=== PATIENT | male | born 1995 | race Two or more races ===

== ENCOUNTER 2016-11-04 18:08 | Emergency (ER) | payer SELFPAY ==
[2016-11-04] MEDS ORDERED: ONDANSETRON 4 MG/2ML 2 ML VIAL ONE (19:42)
[2016-11-04] MEDS ORDERED: SODIUM CHLORIDE 0.9% 1,000 ML ONE (19:42)
[2016-11-04 19:45] LABS: ABSOLUTE NEUTROPHIL COUNT 5.7 K/mm3 (1.8-7.7); BASO % 0.3 % (0.2-1.0); EOS # 0.3 (0.0-0.5); EOS % 3.2 % (0.9-2.9); HEMOGLOBIN 17.1 gm/l (14.0-18.0); IMM NEUT # 0.1 K/mm3 (0-0.2); IMM NEUT% 0.7 % (0-1); LYMPH # 1.7 (1.0-4.8); LYMPH % 19.9 % (15-45); MEAN CELL VOLUME 88.5 fl (80.0-94.0); MEAN CORPUSCULAR HEMOGLOBIN 30.3 pg (27.0-31.0); MEAN CORPUSCULAR HGB CONC 34.2 g/dl (33.0-37.0); MEAN PLATELET VOLUME 11.2 fl (7.4-10.4); MONO # 0.8 (0.0-0.8); MONO % 9.4 % (4-12); NEUT % 66.5 % (43-75); PLATELET COUNT 178 K/mm3 (130-400); RED CELL DISTRIBUTION WIDTH 12.2 % (11.5-14.5)
[2016-11-04 20:04] LABS: ALB/GLOB RATIO 1.5 (>1.0); ALBUMIN 4.7 gm/dL (3.5-5.7); CALCIUM 9.2 mg/dL (8.6-10.3)
== END 2016-11-04 20:45 | disposition home or self-care (01) ==
LOC: ED 18:08
DX: R11.10 Vomiting, unspecified (principal); R19.7 Diarrhea, unspecified; J45.909 Unspecified asthma, uncomplicated
CPT/HCPCS: 83690; 85025; 80053; 99283 ×2; 96374; 96361; J2405; J7030